=== PATIENT | male | born 1955 | race Hispanic/Latino ===

== ENCOUNTER 2018-01-01 23:06 | Emergency (ER) | payer MEDICARE ==
[2018-01-01 23:16] VITALS: BMI 25.6
[2018-01-01 23:35] VITALS: RESP 18
--- NOTE | 2018-01-02 00:41 | ED PDOC ---
Arrival/HPI - General Chief Complaint: Alcohol Ingestion Time Seen by Provider: 01/01/18 23:30 Historian: Patient, EMS - History of Present Illness Narrative History of Present Illness (Text): 01/02/18 00:39 Eduar Lewis is a 62 year old male, whose past medical history includes alcohol abuse, HIV, cirrhosis, heptatis C, and hypertension, who presents to the Emergency department brought in for alcohol intoxication tonight. Patient states he feels fine and admits to drinking alcohol tonight. Patient denies any fever, chills, chest pain, shortness of breath, nausea, vomiting, diarrhea, urinary symptoms, back pain, neck pain, headache, dizziness, or any other complaints. Time/Duration: Other (tonight) Symptom Onset: Gradual Symptom Course: Unchanged Activities at Onset: Light Past Medical History - Provider Review Nursing Documentation Reviewed: Yes - Infectious Disease Hx of Infectious Diseases: None - Tetanus Immunization Tetanus Immunization: Unknown - Past Medical History Past Medical History: Non-Contributing - Cardiac Hx Cardiac Arrhythmia: Yes (svt in past) Hx Hypertension: Yes - Pulmonary Hx Respiratory Disorders: Yes Other/Comment: possible chest nodules - Neurological Hx Dementia: Yes Hx Migraine: Yes - HEENT Hx HEENT Disorder: No - Renal Hx Renal Disorder: No - Endocrine/Metabolic Hx Endocrine Disorders: No - Hematological/Oncological Hx Blood Disorders: Yes Hx Cirrhosis: Yes Hx Hepatitis C: Yes - Integumentary Hx Dermatological Disorder: No - Musculoskeletal/Rheumatological Hx Fractures: Yes (ribs) - Gastrointestinal Hx Gastrointestinal Disorders: No - Genitourinary/Gynecological Hx Genitourinary Disorders: No - Psychiatric Hx Anxiety: Yes Hx Depression: Yes Hx Substance Use: No - Surgical History Other/Comment: craniotomy. right bunionectomy - Anesthesia Hx Anesthesia: Yes Hx Anesthesia Reactions: No Hx Malignant Hyperthermia: No - Suicidal Assessment Feels Threatened In Home Enviroment: No Family/Social History - Physician Review Nursing Documentation Reviewed: Yes Family/Social History: Unknown Family HX Smoking Status: Never Smoked Hx Alcohol Use: No Hx Substance Use: No Hx Substance Use Treatment: No Allergies/Home Meds Allergies/Adverse Reactions: Allergies Iodinated Contrast- Oral and IV Dye [Iodinated Contrast Media - IV Dye] Allergy (Verified 01/01/18 23:13) RASH Penicillins Allergy (Verified 01/01/18 23:13) RASH Home Medications: Home Meds Medication Instructions Recorded Confirmed Abacavir Sulfate [Abacavir] 600 mg PO DAILY 01/04/17 01/01/18 Alprazolam [Xanax] 2 mg PO HS 01/04/17 01/01/18 Amitriptyline HCl [Amitriptyline 50 mg PO HS 01/04/17 01/01/18 HCl] Ascorbic Acid [Vitamin C 250 mg 250 mg PO DAILY 01/04/17 01/01/18 Tab] Atorvastatin Calcium [Atorvastatin 10 mg PO DAILY 01/04/17 01/01/18 Calcium] Cyanocobalamin [Vitamin B12 1000 5,000 mcg PO DAILY 01/04/17 01/01/18 mcg Tab] Dolutegravir Sodium [Tivicay] 50 mg PO DAILY 01/04/17 01/01/18 Donepezil HCl [Aricept Odt] 10 mg PO HS 01/04/17 01/01/18 Fluconazole [Diflucan] 100 mg PO DAILY 01/04/17 01/01/18 Lamivudine [Epivir] 300 mg PO DAILY 01/04/17 01/01/18 Memantine [Namenda] 10 mg PO DAILY 01/04/17 01/01/18 Metoprolol Succinate XL [Toprol XL] 25 mg PO DAILY 01/04/17 01/01/18 Oxycodone HCl/Acetaminophen 5 - 325 tab PO Q4 PRN 01/04/17 01/01/18 [Acetaminophen-Oxycodone 325 mg-5 mg] Silver Sulfadiazine 1% [Silvadene 1 % TOP DAILY 01/04/17 01/01/18 1%] Spironolactone [Aldactone] 50 mg PO DAILY 01/04/17 01/01/18 Vancomycin [Vancomycin Inj] 500 mg IV Q12 01/04/17 01/01/18 Zolpidem Tartrate [Zolpidem 5 mg PO HS PRN 01/04/17 01/01/18 Tartrate] Review of Systems - Physician Review All systems were reviewed & negative as marked: Yes - Review of Systems Constitutional: Normal. absent: Fevers Eyes: Normal ENT: Normal Respiratory: Normal. absent: SOB, Cough Cardiovascular: Normal. absent: Chest Pain Gastrointestinal: Normal. absent: Abdominal Pain, Diarrhea, Nausea, Vomiting Genitourinary Male: Normal. absent: Dysuria, Frequency, Hematuria, Urinary Output Changes Musculoskeletal: Normal. absent: Back Pain, Neck Pain Skin: Normal. absent: Rash Neurological: Normal. absent: Headache, Dizziness Endocrine: Normal Hemo/Lymphatic: Normal Psychiatric: Normal Physical Exam Vital Signs Reviewed: Yes Vital Signs Temp Pulse Resp BP Pulse Ox 01/02/18 05:55 98.2 F 87 18 112/67 98 01/02/18 05:51 87 18 112/67 98 01/01/18 23:10 97.6 F 113 H 18 130/84 97 Temperature: Afebrile Blood Pressure: Normal Pulse: Regular Respiratory Rate: Normal Appearance: Positive for: Well-Appearing, Non-Toxic, Comfortable Pain Distress: None Mental Status: Positive for: Alert and Oriented X 3 - Systems Exam Head: Present: Atraumatic, Normocephalic Pupils: Present: PERRL Extroacular Muscles: Present: EOMI Conjunctiva: Present: Normal Mouth: Present: Moist Mucous Membranes Neck: Present: Normal Range of Motion Respiratory/Chest: Present: Clear to Auscultation, Good Air Exchange. No: Respiratory Distress, Accessory Muscle Use Cardiovascular: Present: Regular Rate and Rhythm, Normal S1, S2. No: Murmurs Abdomen: No: Tenderness, Distention, Peritoneal Signs Back: Present: Normal Inspection Upper Extremity: Present: Normal Inspection. No: Cyanosis, Edema Lower Extremity: Present: Normal Inspection. No: Edema Neurological: Present: GCS=15, CN II-XII Intact, Speech Normal Skin: Present: Warm, Dry, Normal Color. No: Rashes Psychiatric: Present: Alert, Oriented x 3, Normal Insight, Normal Concentration Medical Decision Making ED Course and Treatment: 01/02/18 00:39 Impression: 62 year old male brought in for alcohol intoxication tonight. Differential Diagnosis included but are not limited to: alcohol intoxication Plan: -- Reassess and disposition Progress Notes: 01/02/18 05:54 Pt awake, alert, ambulating with steady gait. In no acute distress, clinically sober. Pt stable for d/c. - Lab Interpretations Lab Results: Lab Results 01/01/18 23:15: POC Glucose (mg/dL) 144 H - Scribe Statement The provider has reviewed the documentation as recorded by the Elsie Wilson Provider Scribe Attestation: All medical record entries made by the Scribe were at my direction and personally dictated by me. I have reviewed the chart and agree that the record accurately reflects my personal performance of the history, physical exam, medical decision making, and the department course for this patient. I have also personally directed, reviewed, and agree with the discharge instructions and disposition. Disposition/Present on Arrival - Present on Arrival Any Indicators Present on Arrival: No History of DVT/PE: No History of Uncontrolled Diabetes: No Urinary Catheter: No History of Decub. Ulcer: No History Surgical Site Infection Following: None - Disposition Have Diagnosis and Disposition been Completed?: Yes Diagnosis: ETOH abuse Disposition: HOME/ ROUTINE Disposition Time: 05:55 Condition: GOOD Discharge Instructions (ExitCare): Alcohol Abuse and Alcoholism (DC) Referrals: Jose Coe MD [Primary Care Provider] - Follow up with primary Forms: [employer] (Japanese)
[2018-01-02 05:52] VITALS: BP 112/67; PULSE 87; O2SAT 98
[2018-01-02 06:33] VITALS: TEMP 98.2
== END 2018-01-02 06:32 | disposition home or self-care (01) ==
LOC: ED 23:06
DX: F10.129 Alcohol abuse with intoxication, unspecified (principal); I10 Essential (primary) hypertension

== ENCOUNTER → 2018-09-09 | Outpatient (CLI) | payer MEDICARE | LOC: LAB 14:03 ==